=== PATIENT | female | born 1980 | race African-American/Black ===

== ENCOUNTER 2016-09-24 07:07 | Emergency (ER) | payer MEDICAID ==
[2016-09-24] MEDS ORDERED: HYDROmorphone 1 mg/mL 1mL Syr IM STA (07:31)
[2016-09-24] MEDS ORDERED: HYDROmorphone 1 mg/mL 1mL Syr ONE (07:36)
--- NOTE | 2016-09-24 08:41 | ED Physician Chart ---
Chief Complaint/HPI - Patient Information Date Seen:: 09/17/16 Time Seen:: 07:00 Chief Complaint:: Myalgia History of Present Illness:: pt has generalized myalgias which she states is typical when she gets a Sickle Cell Crisis; no A/N/V/D/C; no fever, chills, C/P, dyspnea, Abdominal pain; no urinary s/s; no bleeding; no H/As, neck pain, cough, hemoptysis, melena, hematemesis, hematochezia; no gait changes; no vertigo,syncope, or weakness Allergies:: Allergies Allergy/AdvReac Type Severity Reaction Status Date / Time aspirin Allergy Verified 09/24/16 07:27 ketorolac [From Toradol] Allergy Verified 09/24/16 07:27 Penicillins Allergy Verified 09/24/16 07:27 Vitals:: Vital Signs - 8 hr 09/24/16 09/24/16 07:28 08:15 Temp 98.7 F 98.7 F HR 122 100 RR 19 18 BP 137/80 135/78 O2 Sat % 100 100 Historian:: Patient Review:: Nurse's Note Reviewed, Old Chart Reviewed Review of Systems - Review of Systems General/Constitutional: No fever, No chills, No weight loss, No weakness, No diaphoresis, No edema, No loss of appetite Skin: No skin lesions, No rash, No bruising Head: No headache, No light-headedness Eyes: No loss of vision, No pain, No diplopia ENT: No earache, No nasal drainage, No sore throat, No tinnitus Neck: No neck pain, No swelling, No thyromegaly, No stiffness, No mass noted Cardio Vascular: No chest pain, No palpitations, No PND, No orthopnea, No edema Pulmonary: No SOB, No cough, No sputum, No wheezing GI: No nausea, No vomiting, No diarrhea, No pain, No melena, No hematochezia, No constipation, No hematemesis G/U: No dysuria, No frequency, No hematuria Musculoskeletal: No bone or joint pain, No back pain, Muscle pain, No muscle pain Endocrine: No polyuria, No polydipsia Psychiatric: No prior psych history, No depression, No anxiety, No suicidal ideation Hematopoietic: No bruising, No lymphadenopathy Allergic/Immuno: No urticaria, No angioedema Neurological: No syncope, No focal symptoms, No weakness, No paresthesia, No headache, No seizure, No dizziness, No confusion, No vertigo Past Medical History - Past Medical History Past Medical History: HTN, DM, DVT/PE, Other (Sickle Cell Anemia) Family History: Diabetes Melitus, HTN Social History: Non Smoker, No Alcohol, No Drug Use Surgical History: other (BTL) Psychiatricy History: None Medication: Reviewed Family Medical History - Family Member Mother Ethnicity: Non- Living Status: Hx Family Hypertension: Yes Hx Family Diabetes: Yes Physical Exam - Physical Examination General/Constitutional: Awake, Well-developed, well-nourished, Alert, No distress, GCS 15, Non-toxic appearing, Ambulatory Head: Atraumatic Eyes: Lids, conjuctiva normal, PERRL, EOMI Skin: Nl inspection, No rash, No skin lesions, No ecchymosis, Well hydrated, No lymphadenopathy ENMT: External ears, nose nl, Nasal exam nl, Lips, teeth, gums nl Neck: Nontender, Full ROM w/o pain, No JVD, No nuchal rigidity, No bruit, No mass, No stridor Respiratory: Nl effort/Exclusion, Clear to Auscultation, No Wheeze/Rhonchi/Rales Cardio Vascular: RRR, No murmur, gallop, rubs, NL S1 S2 GI: No tenderness/rebounding/guarding, No organomegaly, No hernia, Normal BS's, Nondistended, No mass/bruits, No McBurney tenderness : No CVA tenderness Extremities: No tenderness or effusion, Full ROM, normal strength in all extremities, No edema, Normal digits & nails Neuro/Psych: Alert/oriented, DTR's symmetric, Normal sensory exam, Normal motor strength, Judgement/insight normal, Mood normal, Normal gait, No focal deficits Misc: normal gait, Normal back, No paraspinal tenderness ED Septic Shock - . Is Septic Shock (SBP<90, OR Lactate>4 mmol\L) present?: No - <6hrs of presentation: Vital Signs: Vital Signs - 8 hr 09/24/16 09/24/16 07:28 08:15 Temp 98.7 F 98.7 F HR 122 100 RR 19 18 BP 137/80 135/78 O2 Sat % 100 100 Assessment of Lungs: Lung CTA bilateral, Ventilator, Decreased BS, Rhonchi, No Rhonchi, Rales, No Rales, Wheezing, No Wheezing, Stridor, No Stridor, Other, Documented in PE Assessment of Heart: RRR, Thrill, No thrill, Gallops, No Gallops, S3, S4, Rub, No Rub, Murmur, No Murmur, Other, Documented in PE Capillary refill evaluation: Capillary refill < 2 secs, Capillary refill > 2 secs, Other, Documented in PE Skin Exam: Warm, Dry, Good Turgur, Poor Turgor, Pallor, No Pallor, Diaphoretic, No Diaphoresis, Mottled, No Mottling, Cyanotic, Edema, No Edema, Erythema, No Erythema, Other, Documented in PE Reassessment (Disposition) - Reassessment Reassessment:: pt is asymptomatic upon discharge Reassessment Condition:: Improved - Diagnosis Diagnosis:: Sickle Cell Anemia; Myalgias-resolved - Aftercare/Follow up Instructions Aftercare/Follow-Up Instructions:: Counseled pt regarding lab results/diagnosis & need follow up, Refer to Discharge Instructions, Counseled pt & family regarding lab results/diagnosis & need follow up - Patient Disposition Discharge/Transfer:: Home Condition at Disposition:: Stable, Improved (ACIs given for all Dx; RTER prn if existing s/s reoccur and/or get worse and/or any other new s/s occur; refer to T[employer] Wheel [employer] Relocation Engineer [facility]ACE[facility]; F/U with PMD in one day or prn; RTER prn if concerned) ED Discharge Plan - Patient Disposition Admit/Discharge/Transfer: PT DISCHARGED HOME Condition at Disposition: Improved Instructions: Sickle Cell Pain Crisis Accepting Physician: , Primary [Other] Sam Palmer [Provisional Staff] -
== END 2016-09-24 08:30 | disposition home or self-care (01) ==
LOC: ER 07:07
DX: D57.1 Sickle-cell disease without crisis (principal); M79.1 Myalgia; I10 Essential (primary) hypertension; E11.9 Type 2 diabetes mellitus without complications; Z86.718 Personal history of other venous thrombosis and embolism; Z88.0 Allergy status to penicillin; Z88.6 Allergy status to analgesic agent
CPT/HCPCS: 99284; 96372 ×3; J2405; J1170; J1200; Z7502

== ENCOUNTER 2016-09-24 19:48 | Emergency (ER) | payer MEDICAID ==
--- NOTE | 2016-09-24 22:43 | ED Physician Chart ---
Chief Complaint/HPI - Patient Information Date Seen:: 09/24/16 Time Seen:: 22:00 Chief Complaint:: BODY PAIN Allergies:: Allergies Allergy/AdvReac Type Severity Reaction Status Date / Time aspirin Allergy Unknown Verified 09/24/16 22:03 ketorolac [From Toradol] Allergy Unknown Verified 09/24/16 22:03 Penicillins Allergy Unknown Verified 09/24/16 22:03 Vitals:: Vital Signs - 8 hr 09/24/16 21:00 Temp 99.2 F HR 110 RR 18 BP 124/84 O2 Sat % 100 Historian:: Patient Review:: Nurse's Note Reviewed Review of Systems - Review of Systems General/Constitutional: No fever, No chills, No weight loss, No weakness, No diaphoresis, No edema, No loss of appetite Skin: No skin lesions, No rash, No bruising Head: No headache, No light-headedness Eyes: No loss of vision, No pain, No diplopia ENT: No earache, No nasal drainage, No sore throat, No tinnitus Neck: No neck pain, No swelling, No thyromegaly, No stiffness, No mass noted Cardio Vascular: No chest pain, No palpitations, No PND, No orthopnea, No edema Pulmonary: No SOB, No cough, No sputum, No wheezing GI: No nausea, No vomiting, No diarrhea, No pain, No melena, No hematochezia, No constipation, No hematemesis G/U: No dysuria, No frequency, No hematuria Musculoskeletal: Bone or joint pain, No back pain Endocrine: No polyuria, No polydipsia Psychiatric: No prior psych history, No depression, No anxiety, No suicidal ideation Hematopoietic: No bruising, No lymphadenopathy Allergic/Immuno: No urticaria, No angioedema Neurological: No syncope, No focal symptoms, No weakness, No paresthesia, No headache, No seizure, No dizziness, No confusion, No vertigo Past Medical History - Past Medical History Obtainable: Yes Past Medical History: HTN Family History: None Social History: Non Smoker, No Alcohol, No Drug Use Surgical History: None Family Medical History - Family Member Mother History Unknown: Yes Ethnicity: Non- Living Status: Hx Family Hypertension: Yes Hx Family Diabetes: Yes Physical Exam - Physical Examination General/Constitutional: Awake, Well-developed, well-nourished, Alert, No distress, GCS 15, Non-toxic appearing, Ambulatory Head: Atraumatic Eyes: Lids, conjuctiva normal, PERRL, EOMI Skin: Nl inspection, No rash, No skin lesions, No ecchymosis, Well hydrated, No lymphadenopathy ENMT: External ears, nose nl, Nasal exam nl, Lips, teeth, gums nl Neck: Nontender, Full ROM w/o pain, No JVD, No nuchal rigidity, No bruit, No mass, No stridor Respiratory: Nl effort/Exclusion, Clear to Auscultation, No Wheeze/Rhonchi/Rales Cardio Vascular: RRR, No murmur, gallop, rubs, NL S1 S2 GI: No tenderness/rebounding/guarding, No organomegaly, No hernia, Normal BS's, Nondistended, No mass/bruits, No McBurney tenderness : No CVA tenderness Extremities: No tenderness or effusion, Full ROM, normal strength in all extremities, No edema, Normal digits & nails Neuro/Psych: Alert/oriented, DTR's symmetric, Normal sensory exam, Normal motor strength, Judgement/insight normal, Mood normal, Normal gait, No focal deficits Misc: normal gait, Normal back, No paraspinal tenderness ED Septic Shock - . Is Septic Shock (SBP<90, OR Lactate>4 mmol\L) present?: No - <6hrs of presentation: Vital Signs: Vital Signs - 8 hr 09/24/16 21:00 Temp 99.2 F HR 110 RR 18 BP 124/84 O2 Sat % 100 Reassessment (Disposition) - Reassessment Reassessment Condition:: Unchanged - Diagnosis Diagnosis:: WHOLE BODY PAIN - Patient Disposition Discharge/Transfer:: [facility]/AWOL (THE PATIENT REFUSED TO LET THE LAB DRAW BLOOD. SHE DECIDED TO LEAVE.) ED Discharge Plan - Patient Disposition Admit/Discharge/Transfer: AGAINST MEDICAL ADVICE Condition at Disposition: Stable
== END 2016-09-24 22:30 | disposition left against medical advice (07) ==
LOC: ER 19:48
DX: R52 Pain, unspecified (principal); I10 Essential (primary) hypertension; Z88.0 Allergy status to penicillin; Z88.6 Allergy status to analgesic agent
CPT/HCPCS: Z7502

== ENCOUNTER 2016-10-01 12:37 | Emergency (ER) | payer MEDICAID ==
--- NOTE | 2016-10-01 12:39 | ED Physician Chart ---
Chief Complaint/HPI - Patient Information Date Seen:: 10/01/16 Time Seen:: 12:39 Chief Complaint:: body pain History of Present Illness:: 36-year-old female complains of acute, constant, severe, generalized body pain with associated leg pain times one week. Says she has sickle cell disease and has had multiple similar episodes in the past. Has taken her oxycodone 10/325 mg tablet but it did not seem to help the pain. Denies shortness of breath, cough, chest pain, palpitations, gross hematuria, gross blood in stool, nausea, vomiting. Allergies:: Allergies Allergy/AdvReac Type Severity Reaction Status Date / Time aspirin Allergy Unknown Verified 09/24/16 22:03 ketorolac [From Toradol] Allergy Unknown Verified 09/24/16 22:03 Penicillins Allergy Unknown Verified 09/24/16 22:03 Historian:: Patient Review:: Nurse's Note Reviewed Review of Systems - Review of Systems Other: Complete system review otherwise unremarkable except as noted in history of present illness. Past Medical History - Past Medical History Past Medical History: Other (sickle cell disease) Family History: None Social History: Non Smoker, No Alcohol, No Drug Use, Other Surgical History: None Psychiatricy History: None Medication: None Family Medical History - Family Member Mother History Unknown: Yes Ethnicity: Non- Living Status: Hx Family Hypertension: Yes Hx Family Diabetes: Yes ED Septic Shock - . Is Septic Shock (SBP<90, OR Lactate>4 mmol\L) present?: No Reassessment (Disposition) - Reassessment Reassessment:: Patient's blood smear shows no sickle cells, no anemia, no leukocytosis, and is otherwise unremarkable. Discussed all the findings with the patient. I have offered the patient oral analgesics however she says she would rather just leave. I also reviewed her cures report with her in detail. She does get multiple narcotics including oral Dilaudid and oral oxycodone from multiple prescribers. Recommended follow-up with a primary care physician or pain management clinic. Gave her return to ER precautions. She seemed to acknowledge that she understood and agreed with the plan. Reassessment Condition:: Improved - Patient Disposition Discharge/Transfer:: Home Time:: 13:30 Condition at Disposition:: Improved ED Discharge Plan - Patient Disposition Admit/Discharge/Transfer: PT DISCHARGED HOME Condition at Disposition: Improved Instructions: Chronic Pain Management
[2016-10-01 13:03] LABS: MEAN PLATELET VOLUME 6.4 fl
[2016-10-01 13:06] LABS: HEMATOCRIT 39.2 % (35.0-45.0); HEMOGLOBIN 12.7 gm/dL (11.7-15.5); MEAN CELL VOLUME 74.3 fl (81-100); MEAN CORPUSCULAR HEMOGLOBIN 24.1 pg (27.0-31.0); MEAN CORPUSCULAR HGB CONC 32.4 pg (28.0-36.0); RED BLOOD COUNT 5.27 Mil/cmm (3.80-5.10); RED CELL DISTRIBUTION WIDTH 18.6 % (11.5-20.0); WHITE BLOOD COUNT 4.7 Th/cmm (4.8-10.8)
[2016-10-01 13:32] LABS: PLATELET COUNT NOT ABLE TO PERFORM Th/cmm (150-400)
[2016-10-01 13:41] LABS: NEUTROPHILS 50 % (40-80); TOTAL CELLS COUNTED 100
[2016-10-01 13:42] LABS: ANISOCYTOSIS 1+; MICROCYTOSIS 2+; PLATELET ESTIMATE ADEQUATE (NORMAL); PLATELET MORPHOLOGY PLATELET CLUMPS SEEN (NORMAL)
== END 2016-10-01 13:25 | disposition home or self-care (01) ==
LOC: ER 12:37
DX: R52 Pain, unspecified (principal); Z88.0 Allergy status to penicillin; Z88.6 Allergy status to analgesic agent
CPT/HCPCS: 36415-UA; 85007-TC; 85027-TC; Z7502

== ENCOUNTER 2017-11-28 10:39 | Emergency (ER) | payer MEDICAID ==
--- NOTE | 2017-11-28 11:44 | ED Physician Chart ---
ED Chief Complaint/HPI - Patient Information Date Seen:: 11/28/17 Time Seen:: 11:20 Chief Complaint:: diffuse myalgia History of Present Illness:: Patient's had diffuse myalgia since yesterday started after she attended her sister's . Patient has mild nausea but no vomiting or diarrhea. No chills or fever. No cough. Allergies:: Allergies Allergy/AdvReac Type Severity Reaction Status Date / Time aspirin Allergy Unknown Verified 09/24/16 22:03 ketorolac [From Toradol] Allergy Unknown Verified 09/24/16 22:03 Penicillins Allergy Unknown Verified 09/24/16 22:03 Vitals:: Vital Signs - 8 hr 11/28/17 11:17 Temp 97.2 F HR 111 RR 16 BP 112/91 O2 Sat % 99 Historian:: Patient Review:: Nurse's Note Reviewed ED Review of Systems - Review of Systems General/Constitutional: No fever, No chills, No weight loss, No diaphoresis, No edema, No loss of appetite Skin: No skin lesions, No rash, No bruising Head: No headache, No light-headedness Eyes: No loss of vision, No pain, No diplopia ENT: No earache, No nasal drainage, No sore throat, No tinnitus Neck: No neck pain, No swelling, No thyromegaly, No stiffness, No mass noted Cardio Vascular: No chest pain, No palpitations, No PND, No orthopnea, No edema Pulmonary: No SOB, No cough, No sputum, No wheezing GI: No nausea, No vomiting, No diarrhea, No pain, No melena, No hematochezia, No constipation, No hematemesis G/U: No dysuria, No frequency, No hematuria Musculoskeletal: Bone or joint pain, Back pain, Muscle pain Endocrine: No polyuria, No polydipsia Psychiatric: No prior psych history, No depression, No anxiety, No suicidal ideation Hematopoietic: No bruising, No lymphadenopathy Allergic/Immuno: No urticaria, No angioedema Neurological: No syncope, No focal symptoms, No weakness, No paresthesia, No headache, No seizure, No dizziness, No confusion, No vertigo ED Past Medical History - Past Medical History Past Medical History: Other (D vein thrombosis 3 times; sickle cell disease) Family History: Other (father has sickle cell anemia) Social History: Non Smoker, Other (former smoker who and now uses Nicorette gum) Surgical History: Cholecystectomy, other (inferior vena cava filters) Psychiatricy History: None Medication: Reviewed Family Medical History - Family Member Mother History Unknown: Yes Ethnicity: Non- Living Status: Hx Family Hypertension: Yes Hx Family Diabetes: Yes Father Age: 81 Ethnicity: Non- Living Status: Other Medical History: SICKLE CELL ANEMIA ED Physical Exam - Physical Examination General/Constitutional: Awake, Well-developed, well-nourished Head: Atraumatic Eyes: Lids, conjuctiva normal, PERRL Skin: Nl inspection, No rash, No skin lesions, No ecchymosis ENMT: External ears, nose nl, TM canals nl, Nasal exam nl, Lips, teeth, gums nl , Oropharynx nl, Tonsils nl Neck: No nuchal rigidity Respiratory: Nl effort/Exclusion, Clear to Auscultation, No Wheeze/Rhonchi/Rales Cardio Vascular: RRR Other Cardio Vascular comments:: Regular rapid rhythm GI: No tenderness/rebounding/guarding, No organomegaly, No hernia Extremities: Normal digits & nails Neuro/Psych: Alert/oriented, Mood normal, No focal deficits Misc: No paraspinal tenderness ED Assessment - Assessment General Assessment: Plan was to do a CBC, BMP, magnesium level and erythrocyte sedimentation rate the patient had no peripheral intravenous access so I gave her Dilaudid 2 mg intramuscularly. At about 1252 she reported mild improvement in her pain. She will be given another Dilaudid 1 mg intramuscularly and then discharged. ED Septic Shock - . Is Septic Shock (SBP<90, OR Lactate>4 mmol\L) present?: No - <6hrs of presentation: Vital Signs: Vital Signs - 8 hr 11/28/17 11:17 Temp 97.2 F HR 111 RR 16 BP 112/91 O2 Sat % 99 ED Reassessment (Disposition) - Reassessment Reassessment Condition:: Improved - Diagnosis Diagnosis:: Sickle cell anemia; diffuse myalgia - Patient Disposition Discharge/Transfer:: Home Condition at Disposition:: Stable, Improved
[2017-11-28] MEDS ORDERED: HYDROmorphone 2 mg/mL 1mL Vial IM STA (11:45)
[2017-11-28] MEDS ORDERED: HYDROmorphone 2 mg/mL 1mL Vial ONE (11:47)
[2017-11-28] MEDS ORDERED: HYDROmorphone 1 mg/mL 1mL Syr IM STA (12:53)
[2017-11-28] MEDS ORDERED: HYDROmorphone 1 mg/mL 1mL Syr ONE (12:56)
== END 2017-11-28 13:30 | disposition home or self-care (01) ==
LOC: ER 10:39
DX: D57.1 Sickle-cell disease without crisis (principal); Z90.49 Acquired absence of other specified parts of digestive tract; Z88.0 Allergy status to penicillin; Z88.5 Allergy status to narcotic agent
CPT/HCPCS: J1170; J7030; Z7502